=== PATIENT | female | born 1965 | race American Indian/Alaskan Native ===

== ENCOUNTER 2017-07-07 17:21 | Emergency (ER) | payer BC ==
[2017-07-07 17:47] VITALS: BMI 45.6
[2017-07-07 17:50] VITALS: TEMP 98.8
--- NOTE | 2017-07-07 18:46 | C.PDOC ---
History Of Present Illness <Reva Haley - Last Filed: 07/07/17 18:43> <Stephanie Garber - Last Filed: 07/07/17 20:17> Patient c/o SILVERIO that started today. Patient sts she checked her BP and found it to be elevated to 150/100. Patient sts her BP usually well controlled with Hyzaar. Patient sts she took Tylenol po that helped for headache. However while goind home from work, headache came back and associated with upper left arm pain. Patient denies SOB, Fever, Chest pain. Patient sts she called her PMD who instructed to to be evaluated in ED. Currently patient denies headache, but left upper arm pain persists. (Reva Haley) <Reva Haley - Last Filed: 07/07/17 18:43> <[email or web address] - Last Filed: 07/07/17 20:17> Chief Complaint (Nursing): High Blood Pressure Past Medical History Reviewed: Historical Data, Nursing Documentation, Vital Signs - Medical History PMH: HTN Family History: States: Unknown Family Hx - Social History Hx Alcohol Use: No Hx Substance Use: No - Immunization History Hx Tetanus Toxoid Vaccination: No Hx Influenza Vaccination: No Hx Pneumococcal Vaccination: No <Reva Haley - Last Filed: 07/07/17 18:43> Vital Signs: Last Vital Signs Temp 98.8 F 07/07/17 20:10 Pulse 66 07/07/17 20:10 Resp 16 07/07/17 20:10 BP 132/82 07/07/17 20:10 Pulse Ox 99 07/07/17 20:10 Review Of Systems Except As Marked, All Systems Reviewed And Found Negative. <Reva Haley - Last Filed: 07/07/17 18:43> Physical Exam - Physical Exam Appears: Well, Non-toxic, No Acute Distress Skin: Normal Color, No Diaphoretic, No Rash Head: Atraumatic, Normacephalic Eye(s): bilateral: Normal Inspection Neck: Normal ROM, No Midline Cervical Tenderness, No Paracervical Tenderness Chest: Symmetrical, No Deformity, No Tenderness Cardiovascular: Rhythm Regular Respiratory: Normal Breath Sounds, No Accessory Muscle Use Gastrointestinal/Abdominal: Normal Exam, Soft, No Tenderness Back: No Vertebral Tenderness, No Paraspinal Tenderness Extremity: Normal ROM, No Tenderness, No Deformity, No Swelling Extremity: Bilateral: Atraumatic Pulses: Left Radial: Normal, Right Radial: Normal Neurological/Psych: Oriented x3, Normal Speech, Normal Cognition <Reva Haley - Last Filed: 07/07/17 18:43> ED Course And Treatment O2 Sat by Pulse Oximetry: 98 Progress Note: Plan: cardiac work up <Reva Haley - Last Filed: 07/07/17 18:43> - Laboratory Results Result Diagrams: 07/07/17 19:29 07/07/17 19:29 Pulse Ox Interpretation: Normal - Radiology CXR: Interpreted by Me, Viewed By Me CXR Interpretation: No: Infiltrates, Fracture, Pnemothorax Reevaluation Time: 20:17 Reassessment Condition: Improved <Stephanie Garber - Last Filed: 07/07/17 20:17> Disposition - Disposition Disposition Time: 18:52 <Reva Haley Last Filed: 07/07/17 18:43> Counseled Patient/Family Regarding: Studies Performed, Diagnosis, Need For Followup <Stephanie Garber - Last Filed: 07/07/17 20:17> - Disposition Referrals: Xiomy Davis MD [Staff Provider] - Disposition: HOME/ ROUTINE Condition: FAIR Additional Instructions: Please return if symptoms recur Instructions: Hypertension (DC), Arm Pain (ED) Forms: [facility] (Hebrew) - Clinical Impression Clinical Impression: Hypertension, Arm pain, left Physician Patient Turnover Patient Signed Over To: Stephanie Garber Handoff Comments: cardiac work up, dispo <Reva Haley - Last Filed: 07/07/17 18:43>
[2017-07-07 19:33] LABS: BASO # 0.1 K/uL (0.0-0.2); BASO % 0.7 % (0.0-2.0); EOS # 0.2 K/uL (0.0-0.7); LYMPH # 3.8 K/uL (1.0-4.3); LYMPH % 41.4 % (20.0-40.0); MEAN CELL VOLUME 86.4 fL (81.0-99.0); MEAN CORPUSCULAR HEMOGLOBIN 28.6 pg (27.0-31.0); MEAN CORPUSCULAR HGB CONC 33.1 g/dL (33.0-37.0); MEAN PLATELET VOLUME 7.4 fL (7.2-11.7); MONO # 0.6 K/uL (0.0-0.8); MONO % 6.2 % (0.0-10.0); NEUT # 4.6 K/uL (1.8-7.0); NEUT % 49.7 % (50.0-75.0); RBC 4.2 Mil/uL (3.80-5.20); RED CELL DISTRIBUTION WIDTH 14.4 % (11.5-14.5); WHITE BLOOD COUNT 9.3 K/uL (4.8-10.8)
[2017-07-07 19:37] LABS: INR 1.1; PROTHROMBIN TIME 12.5 SECONDS (9.7-12.2)
[2017-07-07 19:41] LABS: SQUAMOUS EPITHIAL 12 /hpf (0-5); URINE BACTERIA OCC (<OCC); URINE BILIRUBIN NEGATIVE (NEGATIVE); URINE CLARITY Hazy (Clear); URINE COLOR Yellow (YELLOW); URINE GLUCOSE (UA) NORMAL (Normal); URINE NITRATE NEGATIVE (NEGATIVE); URINE PROTEIN NEGATIVE (NEGATIVE); URINE UROBILINOGEN NORMAL mg/dL (0.2-1.0)
[2017-07-07 19:42] LABS: URINE BLOOD 2+ (NEGATIVE); URINE LEUKOCYTE ESTERASE 1+ Leu/uL (Negative)
[2017-07-07 19:46] LABS: ALB/GLOB RATIO 1.2 (1.0-2.1); ALBUMIN 4.2 g/dL (3.5-5.0); ALT/SGPT 27 U/L (9-52); AST/SGOT 15 U/L (14-36); BLOOD UREA NITROGEN 11 mg/dL (7-17); CALCIUM 8.3 mg/dl (8.6-10.4); GFR AFRICAN-AMERICAN > 60; GFR NON-AFRICAN AMERICAN > 60
[2017-07-07 19:59] LABS: CK-MB < 0.22 ng/mL (0.0-3.38)
[2017-07-07 20:11] VITALS: BP 132/82; PULSE 66; RESP 16; O2SAT 99
--- NOTE | 2017-07-08 08:28 | RAD ---
PROCEDURE: CHEST RADIOGRAPH, 1 VIEW HISTORY: left arm pain, elevated BP COMPARISON: None available. FINDINGS: LUNGS: No acute infiltrate is identified bilaterally. PLEURA: No pneumothorax or pleural fluid seen. CARDIOVASCULAR: Normal. OSSEOUS STRUCTURES: No significant abnormalities. VISUALIZED UPPER ABDOMEN: Normal. OTHER FINDINGS: None. IMPRESSION: No acute cardiopulmonary disease appreciated.
--- NOTE | 2017-07-09 10:38 | CARD ---
APPROVED REPORT EKG Measurement Heart [id number] <Conclusion> Normal sinus rhythm Right bundle branch block Abnormal ECG
== END 2017-07-07 20:42 | disposition home or self-care (01) ==
LOC: C.ER 17:21
DX: I10 Essential (primary) hypertension (principal); M79.622 Pain in left upper arm